=== PATIENT | male | born 1960 | race Caucasian/White ===

== ENCOUNTER 2016-09-15 15:16 | Emergency (ER) | payer OTHER ==
[~2016-09-15] VITALS: Ht 177.8 cm; Wt 70.5 kg
[2016-09-15 15:22] VITALS: TEMP 36.8; Ht 177.8 cm; Wt 70.5 kg
[2016-09-15 16:02] VITALS: O2SAT 94
--- NOTE | 2016-09-15 16:55 | EMERGENCY ROOM VISIT NOTE ---
History Report prepared by Agustina: Eddie Oden Under the Supervision of: Dr. Tiffanie Johnson D.O. First contact with patient: 15:24 Chief Complaint: OVERDOSE (INTENTIONAL) Stated Complaint: OVERDOSE History of Present Illness The patient is a 55 year old male who presents to the Emergency Room with complaints of a sudden intentional drug overdose that occurred prior to arrival. The patient states that he was smoking a drug today by the name of "black dust." He states that he is unsure what is in the black dust, noting that he thought it was K2. The patient states that he has never tried the drug in the past. He states that he needs to use the restroom. The patient denies any loss of consciousness. He denies any active medical problems. The patient states that he ate normally today. He states that he knows he is in an emergency department, but believes it is 2008. Source of History: patient Onset: prior to arrival Position: other (global) Quality: other (drug overdose) Timing: other (sudden) Review of Systems See HPI for pertinent positives & negatives. A total of 10 systems reviewed and were otherwise negative. Past Medical & Surgical No active medical problems Family History No pertinent family history stated. Social History Smoking Status: Current Every Day Smoker Marital Status: other (prisoner) Physical Exam Vital Signs Date Time Temp Pulse Resp B/P Pulse Ox O2 Delivery O2 Flow Rate FiO2 09/15/16 17:54 98 15 145/94 97 09/15/16 17:34 98 15 145/94 97 Room Air 09/15/16 16:02 94 Room Air 09/15/16 16:02 98 21 144/100 95 Room Air 09/15/16 15:22 36.8 103 20 134/94 94 Room Air Physical Exam HEENT: Head - normocephalic and atraumatic Pupils are equal, round, and reactive to light. Extraocular eye muscles are intact, and sclera are anicteric. Nose - moist nasal mucosa without discharge. Mouth - poor dentition. Oropharynx is nonerythematous and there is no tonsillar exudate or edema noted. Neck: Supple; no JVD, nuchal rigidity, cervical lymphadenopathy. Heart: Regular rate and rhythm. There is a normal S1 and S2 with no murmurs, clicks, or gallops appreciated. Lungs: Clear to auscultation bilaterally with no wheezes, rales, or rhonchi. Abdomen: Significant abdominal distension, thought to be bladder. Soft, completely nontender, with good bowel sounds. There are no palpable pulsatile masses or hepatosplenomegaly. There is no guarding, rigidity, or rebound noted. Extremities: No evidence of cyanosis, clubbing, or edema. There are easily palpable peripheral pulses. Skin: warm and dry with good turgor and no rashes. Neuro: The patient is easily able to follow commands. He is moving all 4 extremities. He remains slightly confused about the date and time. Medical Decision & Procedures Laboratory Results Test 09/15/16 00:00 Urine Opiates Screen NEG (NEG) Urine Methadone, Qualitative NEG (NEG) Urine Barbiturates NEG (NEG) Urine Phencyclidine (PCP) Level NEG (NEG) Ur Amphetamine/Methamphetamine NEG (NEG) MDMA (Ecstasy) Screen NEG (NEG) Urine Benzodiazepines Screen NEG (NEG) Urine Cocaine Metabolite NEG (NEG) Urine Marijuana (THC) NEG (NEG) Laboratory results per my review. Procedure Palmer catheter was placed by the nursing staff. ED Course 1622: Past medical records reviewed. The patient was evaluated in room C7. A complete history and physical exam was performed. A bladder scan was performed 1635: Per nursing staff, the patient has 999 cc retained in his bladder revealed by the bladder scanner. 1638: I talked with nursing staff, and they are going to place a Palmer catheter in the patient and send him back to the jail. 1744: I reevaluated the patient and he is feeling much better. I discussed all the exam findings with him and the guards and I discussed the treatment plan. They verbalized complete understanding and agreement. The patient is ready for discharge. nursing staff will discuss the case with staff at the jail Medical Decision The patient is a 55 year old male who presents to the ED with intentional overdose. Differential diagnosis includes synthetic marijuana overdose, PCP overdose, other drug overdose. Lab interpretation: Urinalysis is negative this is an inmate from [facility] who was smoking an unknown drug at the jail. He became extremely confused and developed urinary retention as a result of this. The patient believed that that the drug was skate 2 which is synthetic marijuana. He referred to as "black dust." Sometimes black dust refers to PCP. It's difficult to tell what the drug may have been. Urine tox screen was negative for any of the usual drugs of abuse. The patient was noted with a stable. He will be returned to the present with Palmer in place to be cared for by the infirmary. Impression Primary Impression: Urinary retention Additional Impression: Drug abuse Scribe Attestation The scribe's documentation has been prepared under my direction and personally reviewed by me in its entirety. I confirm that the note above accurately reflects all work, treatment, procedures, and medical decision making performed by me. Departure Information Dispostion Home / Self-Care Referrals Rohit LANGE (PCP) Forms HOME CARE DOCUMENTATION FORM, IMPORTANT VISIT INFORMATION, WORK / SCHOOL INSTRUCTIONS Patient Instructions Catheter Indwelling Urinary Dc, My [facility] Additional Instructions Avoid abusing drugs. You will need to leave the catheter in until you are cleared in the infirmary and it can be removed. Problem Qualifiers
[2016-09-15 17:33] LABS: BENZODIAZEPINE, URINE NEG (NEG); COCAINE,URINE NEG (NEG); PHENCYCLIDINE, URINE NEG (NEG)
[2016-09-15 17:54] VITALS: BP 145/94; PULSE 98; O2SAT 97
== END 2016-09-15 17:54 | disposition home or self-care (01) ==
LOC: EDBD 15:16 → C.EDC 15:17
DX: R33.9 Retention of urine, unspecified (principal); F19.10 Other psychoactive substance abuse, uncomplicated; F17.210 Nicotine dependence, cigarettes, uncomplicated

== ENCOUNTER → 2017-01-14 | Outpatient (CLI) | payer OTHER ==
[2017-01-14 20:01] LABS: HEMATOCRIT 38.2 % (42-52); MEAN CELL VOLUME 80.6 fL (80-100); MEAN CORPUSCULAR HEMOGLOBIN 29.3 pg (25-34); MEAN CORPUSCULAR HGB CONC 36.4 g/dl (32-36); MEAN PLATELET VOLUME 9.4 fL (7.4-10.4); PLATELET COUNT 253 K/uL (130-400); RED BLOOD COUNT 4.74 M/uL (4.7-6.1); WHITE BLOOD COUNT 14.39 K/uL (4.8-10.8)
[2017-01-14 20:21] LABS: ALB/GLOB RATIO 1.1 (0.9-2); ALKALINE PHOSPHATASE 101 U/L (45-117); ALT/SGPT 32 U/L (12-78); AST/SGOT 35 U/L (15-37); BLOOD UREA NITROGEN 11 mg/dl (7-18); BUN/CREATININE RATIO 16.4 (10-20); CALCIUM 9.5 mg/dl (8.5-10.1); CARBON DIOXIDE 23 mmol/L (21-32); CHLORIDE 89 mmol/L (98-107); CREATININE 0.69 mg/dl (0.60-1.40); GLUCOSE 82 mg/dl (70-99); POTASSIUM 4.3 mmol/L (3.5-5.1); SODIUM 122 mmol/L (136-145)
--- NOTE | 2017-01-20 13:38 | CODING QUERY NO DIAGNOSIS ---
TREATMENT RENDERED WITHOUT A DIAGNOSIS Dr. Suarez, To promote full compliance with coding requirements relating to patient care, physician participation is requested in all cases of pre coder uncertainty. Please assist us with providing a diagnosis/symptom for the test(s) below: A diagnosis/symptom was not documented on your Order. A valid diagnosis/symptom is required to bill all insurances. Please remember that we are unable to code a diagnosis of rule out, probable, possible, questionable, or suspected. Tests that require a diagnosis: * CBC W/O DIFF DIAGNOSIS: * CMP DIAGNOSIS: DATE OF SERVICE: 01/14/17 Provider Signature: Date: Thank you Steffen Joshi [facility] Information Management Once completed, please kindly fax back to [phone] For questions please call [phone]
== END | disposition home or self-care (01) ==
LOC: C.LABSPEC 10:15
PROVIDERS: ATTEND Family Medicine
DX: B18.2 Chronic viral hepatitis C (principal)

== ENCOUNTER → 2017-04-09 | Outpatient (CLI) | payer OTHER ==
[2017-04-09 10:35] LABS: HEMATOCRIT 43.4 % (42-52); HEMOGLOBIN 15.1 g/dL (14.0-18.0); MEAN CELL VOLUME 83.8 fL (80-100); MEAN CORPUSCULAR HEMOGLOBIN 29.2 pg (25-34); MEAN PLATELET VOLUME 9.6 fL (7.4-10.4); PLATELET COUNT 293 K/uL (130-400); RED CELL DISTRIBUTION WIDTH CV 14.1 % (11.5-14.5); RED CELL DISTRIBUTION WIDTH SD 43.7 fL (36.4-46.3); WHITE BLOOD COUNT 15.33 K/uL (4.8-10.8)
[2017-04-09 10:36] LABS: MEAN CORPUSCULAR HGB CONC 34.8 g/dl (32-36)
[2017-04-09 10:59] LABS: ALBUMIN 3.4 gm/dl (3.4-5.0); ALKALINE PHOSPHATASE 98 U/L (45-117); ALT/SGPT 28 U/L (12-78); AST/SGOT 18 U/L (15-37); BLOOD UREA NITROGEN 10 mg/dl (7-18); CALCIUM 8.6 mg/dl (8.5-10.1); CARBON DIOXIDE 30 mmol/L (21-32); CREATININE 0.74 mg/dl (0.60-1.40); GLUCOSE 105 mg/dl (70-99); POTASSIUM 3.2 mmol/L (3.5-5.1); SODIUM 128 mmol/L (136-145); TOTAL PROTEIN 6.9 gm/dl (6.4-8.2)
== END ==
LOC: C.LABSPEC 14:50
PROVIDERS: ATTEND Family Medicine
DX: Z01.89 Encounter for other specified special examinations (principal)

== ENCOUNTER → 2017-04-10 | Outpatient (CLI) | payer OTHER ==
[2017-04-10 11:02] LABS: HEMATOCRIT 39.2 % (42-52); MEAN CELL VOLUME 85.2 fL (80-100); MEAN CORPUSCULAR HEMOGLOBIN 29.8 pg (25-34); MEAN PLATELET VOLUME 9.7 fL (7.4-10.4); PLATELET COUNT 265 K/uL (130-400); WHITE BLOOD COUNT 11.49 K/uL (4.8-10.8)
[2017-04-10 11:11] LABS: BLOOD UREA NITROGEN 8 mg/dl (7-18); BUN/CREATININE RATIO 13.3 (10-20); CALCIUM 8.2 mg/dl (8.5-10.1); CARBON DIOXIDE 26 mmol/L (21-32); CHLORIDE 103 mmol/L (98-107); CREATININE 0.61 mg/dl (0.60-1.40); GLUCOSE 96 mg/dl (70-99); SODIUM 135 mmol/L (136-145)
[2017-04-10 11:39] LABS: MEAN CORPUSCULAR HGB CONC 34.9 g/dl (32-36)
== END ==
LOC: C.LABSPEC 14:51
PROVIDERS: ATTEND Family Medicine
DX: E87.6 Hypokalemia (principal)